=== PATIENT | female | born 1940 | race Caucasian/White ===

== ENCOUNTER → 2018-02-15 14:17 | Outpatient (CLI) | payer MEDICARE, BC | END | disposition home or self-care (01) | LOC: D.MRI 14:17 | DX: M25.511 Pain in right shoulder (principal) ==

== ENCOUNTER → 2018-07-22 14:54 | Outpatient (CLI) | payer MEDICARE, BC | END | disposition home or self-care (01) | LOC: D.CT 14:54 | DX: R59.1 Generalized enlarged lymph nodes (principal) ==